=== PATIENT | female | born 1955 | race African-American/Black ===

== ENCOUNTER 2017-07-06 08:54 | Day surgery (SDC) | payer OTHER ==
[2017-06-29 13:59] VITALS: BMI 49.6
[2017-07-07 06:39] VITALS: BP 144/75; PULSE 80; TEMP 98.3
== END 2017-07-07 13:08 | disposition home or self-care (01) ==
LOC: FASU 08:54 → FM/S 17:04 → FASU 07-07 13:08
PROVIDERS: ATTEND Orthopaedic Surgery Orthopaedic Surgery of the Spine
PROC: 01NB0ZZ Release Lumbar Nerve, Open Approach (ICD-10-PCS; principal; 2017-07-06)
DX: M48.061 Spinal stenosis, lumbar region without neurogenic claudication (principal)
CPT/HCPCS: 36415; 72100-TC-FY; 80048; 82962; 85025; 94660; 94760; 97116-GP; 97161-GP